=== PATIENT | female | born 1995 | race American Indian/Alaskan Native ===

== ENCOUNTER 2019-07-21 02:39 | Emergency (ER) | payer SELFPAY ==
[2019-07-21 04:26] VITALS: BP 117/71
[2019-07-21] MEDS ORDERED: dexAMETHasone 4 MG/ML VIAL IM ONE (04:35)
--- NOTE | 2019-07-21 04:39 | Emergency Department Report ---
ED ENT HPI - General Chief complaint: Sore Throat Stated complaint: THROAT PAIN/POSS STREP Time Seen by Provider: 07/21/19 04:28 Source: patient Mode of arrival: Ambulatory Limitations: No Limitations - History of Present Illness Initial comments: Patient is a 23-year-old female presents emergency room with complaints of a sore throat that began 2 days ago. She has associated discomfort with swallowing and chills. She denies any fever, nausea, vomiting, diarrhea, shortness of breath. She is able to tolerate p.o. intake and her secretions. She denies any past medical history or allergies to medications. She states her last menstrual cycle was 2 weeks ago. - Related Data Previous Rx's Medication Instructions Recorded Last Taken Type Penicillin Vk [Veetids TAB] 500 mg PO BID 10 Days #20 tablet 07/21/19 Unknown Rx Allergies Allergy/AdvReac Type Severity Reaction Status Date / Time No Known Allergies Allergy Unverified 07/21/19 02:43 ED Dental HPI - General Chief complaint: Sore Throat Stated complaint: THROAT PAIN/POSS STREP Time Seen by Provider: 07/21/19 04:28 Source: patient Mode of arrival: Ambulatory Limitations: No Limitations - Related Data Previous Rx's Medication Instructions Recorded Last Taken Type Penicillin Vk [Veetids TAB] 500 mg PO BID 10 Days #20 tablet 07/21/19 Unknown Rx Allergies Allergy/AdvReac Type Severity Reaction Status Date / Time No Known Allergies Allergy Unverified 07/21/19 02:43 ED Review of Systems ROS: Stated complaint: THROAT PAIN/POSS STREP Other details as noted in HPI Comment: All other systems reviewed and negative ED Past Medical Hx - Past Medical History Previous Medical History?: No - Surgical History Past Surgical History?: Yes Additional Surgical History: Ovarian cyst removal - Social History Smoking Status: Current Every Day Smoker - Medications Home Medications: Home Medications Medication Instructions Recorded Confirmed Last Taken Type Penicillin Vk [Veetids TAB] 500 mg PO BID 10 Days #20 tablet 07/21/19 Unknown Rx ED Physical Exam - General Limitations: No Limitations General appearance: alert, in no apparent distress - Head Head exam: Present: atraumatic, normocephalic - Eye Eye exam: Present: normal appearance - ENT ENT exam: Present: mucous membranes moist - Expanded ENT Exam Expanded Mouth exam: Present: tongue normal. Absent: drooling, trismus, muffled voice, tongue elevation Throat exam: Positive: tonsillar erythema (bilaterally), tonsillomegaly (bilaterally), tonsillar exudate (bilaterally). Negative: R peritonsillar mass, L peritonsillar mass - Respiratory Respiratory exam: Present: normal lung sounds bilaterally. Absent: respiratory distress, wheezes, rales, rhonchi, stridor, chest wall tenderness, accessory muscle use, decreased breath sounds, prolonged expiratory - Cardiovascular Cardiovascular Exam: Present: regular rate, normal rhythm, normal heart sounds. Absent: systolic murmur, diastolic murmur, rubs, gallop - Neurological Exam Neurological exam: Present: alert, oriented X3 - Psychiatric Psychiatric exam: Present: normal affect, normal mood - Skin Skin exam: Present: warm, dry, intact ED Course Vital Signs 07/21/19 07/21/19 02:46 04:25 Temperature 99.2 F 99 F Pulse Rate 94 H 77 Respiratory 18 18 Rate Blood Pressure 138/54 Blood Pressure 117/71 [Right] O2 Sat by Pulse 98 100 Oximetry ED Medical Decision Making - Lab Data Lab Results 07/21/19 Range/Units 03:00 Influenza A (Rapid) Negative (Negative) Influenza B (Rapid) Negative (Negative) Group A Strep Rapid Positive A (Negative) - Medical Decision Making Patient is a 23-year-old female presents emergency room with complaints of a sore throat that began 2 days ago. She has associated discomfort with swallowing and chills. She denies any fever, nausea, vomiting, diarrhea, shortness of breath. She is able to tolerate p.o. intake and her secretions. She denies any past medical history or allergies to medications. She states her last menstrual cycle was 2 weeks ago. Vitals are stable. On exam bilateral tonsillar hypertrophy with exudates, uvula is midline, no uvular deviation, no trismus, no muffled voice, no peritonsillar mass no elevation of the tongue. Rapid strep is positive. Influenza is negative. Patient given dexamethasone injection while in the emergency department. Patient given prescription for penicillin VK. advised pt Please take medication as prescribed. Increase your water intake. May take Tylenol or ibuprofen as needed for pain. Do warm salt water gargles 3 times a day. Please throw away her toothbrush. Do not drink after others or allow others to drink after you. Follow-up with a primary care doctor. Return to the emergency room for any new or worsening symptoms. Critical care attestation.: If time is entered above; I have spent that time in minutes in the direct care of this critically ill patient, excluding procedure time. ED Disposition Clinical Impression: Strep pharyngitis Disposition: DC-01 TO HOME OR SELFCARE Is pt being admited?: No Does the pt Need Aspirin: No Condition: Stable Instructions: Strep Throat (ED) Additional Instructions: Please take medication as prescribed. Increase your water intake. May take Tylenol or ibuprofen as needed for pain. Do warm salt water gargles 3 times a day. Please throw away her toothbrush. Do not drink after others or allow others to drink after you. Follow-up with a primary care doctor. Return to the emergency room for any new or worsening symptoms. Prescriptions: Penicillin Vk [Veetids TAB] 500 mg PO BID 10 Days #20 tablet Referrals: MAGGIE LEUNG MD [Staff Physician] - 3-5 Days [facility] [Outside] - 3-5 Days Time of Disposition: 04:37 Print Language: YAKUT
== END 2019-07-21 04:45 | disposition home or self-care (01) ==
LOC: ED 02:39
DX: J02.0 Streptococcal pharyngitis (principal); F17.200 Nicotine dependence, unspecified, uncomplicated; Z79.899 Other long term (current) drug therapy; Z98.890 Other specified postprocedural states
CPT/HCPCS: 87400; 87430; 96372; 99283; J1100

== ENCOUNTER 2019-09-23 23:54 | Emergency (ER) | payer SELFPAY ==
[2019-09-24 00:49] LABS: Basophils % (Auto) 0.5 % (0.0-1.8); Eosinophils % (Auto) 0.6 % (0.0-4.3); Hematocrit 39.6 % (30.3-42.9); Hemoglobin 12.8 gm/dl (10.1-14.3); Lymphocytes # (Auto) 2.1 K/mm3 (1.2-5.4); Mean Corpuscular HGB Conc 32 % (30-34); Mean Corpuscular Volume 87 fl (79-97); Monocytes # (Auto) 0.4 K/mm3 (0.0-0.8); Monocytes % (Auto) 7.8 % (0.0-7.3); Platelet Count 229 K/mm3 (140-440); Red Blood Count 4.53 M/mm3 (3.65-5.03); Red Cell Distribution Width 15.2 % (13.2-15.2)
[2019-09-24 01:14] LABS: Alanine Aminotransferase 13 units/L (7-56); Albumin 3.8 g/dL (3.9-5); BUN/Creatinine Ratio 11; Blood Urea Nitrogen 8 mg/dL (7-17); Calcium 8.8 mg/dL (8.4-10.2); Hemolysis Index 15
[2019-09-24 01:20] LABS: Bilirubin,Urine NEG (Negative); Blood,Urine SM (Negative); Color,Urine Yellow (Yellow); Mucus,Urine FEW /HPF; Protein,Urine <15 mg/dL mg/dL (Negative); Urobilinogen,Urine < 2.0 mg/dL (<2.0)
[2019-09-24 01:22] LABS: HCG Qualitative,Urine Negative (Negative)
[2019-09-24] MEDS ORDERED: NITROFURANTOIN MONOHYD/M-CRYST 100 MG CAP PO ONE (02:37)
[2019-09-24] MEDS ORDERED: ONDANSETRON 4 MG ODT TAB PO ONE (02:37)
--- NOTE | 2019-09-24 02:43 | Emergency Department Report ---
ED Female HPI - General Chief complaint: Abdominal Pain Stated complaint: VOMITING,FREQ URINATION Time Seen by Provider: 09/24/19 01:20 Source: patient Mode of arrival: Ambulatory Limitations: No Limitations - History of Present Illness Initial comments: pt is a 23 y/o aaf who presents for abd pain and cramping with urination x x 4 days, pt denies fever or chills. abd spasm exacerbated by voiding, she denies vaginal discharge no hematuria. Symptoms are relieved by nothing, symptoms are exacerbated by voiding. . MD Complaint: dysuria Onset/Timin -: days(s) Location: suprapubic Severity: moderate Severity scale (0 -10): 4 Quality: cramping Consistency: intermittent Improves with: none Worsens with: urination Are you Now?: No Last Menstrual Period: 06/04/19 EDC: 03/10/20 Associated Symptoms: nausea/vomiting, dysuria - Related Data Sexually active: No Previous Rx's Medication Instructions Recorded Last Taken Type Penicillin Vk [Veetids TAB] 500 mg PO BID 10 Days #20 tablet 07/21/19 Unknown Rx Acetaminophen [Acetaminophen TAB] 1,000 mg PO Q6HR #30 tablet 09/24/19 Unknown Rx Nitrofurantoin [place]/M-Cryst 100 mg PO BID 7 Days #14 capsule 09/24/19 Unknown Rx [Macrobid CAP] Ondansetron [Zofran Odt] 4 mg PO Q8HR PRN 2 Days #12 09/24/19 Unknown Rx tab.rapdis Allergies Allergy/AdvReac Type Severity Reaction Status Date / Time No Known Allergies Allergy Unverified 07/21/19 02:43 ED Review of Systems ROS: Stated complaint: VOMITING,FREQ URINATION Other details as noted in HPI Constitutional: no symptoms reported Eyes: denies: eye pain, eye discharge, vision change ENT: denies: ear pain, throat pain Respiratory: denies: cough, shortness of breath, wheezing Cardiovascular: denies: chest pain, palpitations Endocrine: no symptoms reported Gastrointestinal: abdominal pain, nausea, vomiting. denies: diarrhea, constipation, hematemesis, melena, hematochezia Genitourinary: urgency, dysuria, frequency. denies: hematuria, discharge, abnormal menses Musculoskeletal: denies: back pain, joint swelling, arthralgia Skin: denies: rash, lesions Neurological: denies: headache, weakness, paresthesias Psychiatric: denies: anxiety, depression Hematological/Lymphatic: denies: easy bleeding, easy bruising ED Past Medical Hx - Past Medical History Previous Medical History?: No - Surgical History Past Surgical History?: Yes Additional Surgical History: Ovarian cyst removal - Social History Smoking Status: Current Every Day Smoker Substance Use Type: None - Medications Home Medications: Home Medications Medication Instructions Recorded Confirmed Last Taken Type Penicillin Vk [Veetids TAB] 500 mg PO BID 10 Days #20 tablet 07/21/19 Unknown Rx Acetaminophen [Acetaminophen TAB] 1,000 mg PO Q6HR #30 tablet 09/24/19 Unknown Rx Nitrofurantoin [place]/M-Cryst 100 mg PO BID 7 Days #14 capsule 09/24/19 Unknown Rx [Macrobid CAP] Ondansetron [Zofran Odt] 4 mg PO Q8HR PRN 2 Days #12 09/24/19 Unknown Rx tab.rapdis ED Physical Exam - General Limitations: No Limitations General appearance: alert, in no apparent distress - Head Head exam: Present: atraumatic, normocephalic - Eye Eye exam: Present: normal appearance, PERRL, EOMI Pupils: Present: normal accommodation - ENT ENT exam: Present: mucous membranes moist - Respiratory Respiratory exam: Present: normal lung sounds bilaterally. Absent: respiratory distress, wheezes, stridor, chest wall tenderness - Cardiovascular Cardiovascular Exam: Present: regular rate, normal rhythm, normal heart sounds. Absent: systolic murmur, diastolic murmur, rubs, gallop - GI/Abdominal GI/Abdominal exam: Present: soft, normal bowel sounds. Absent: distended, tenderness, guarding, rebound, rigid, bruit, hernia - Rectal Rectal exam: Present: deferred - Extremities Exam Extremities exam: Present: normal inspection, full ROM. Absent: tenderness - Back Exam Back exam: Present: normal inspection, full ROM. Absent: tenderness, CVA tenderness (R), CVA tenderness (L), rash noted - Neurological Exam Neurological exam: Present: alert, oriented X3, CN II-XII intact, normal gait - Psychiatric Psychiatric exam: Present: normal affect, normal mood - Skin Skin exam: Present: warm, dry, intact, normal color. Absent: rash ED Course Vital Signs 09/23/19 23:57 Temperature 98.4 F Pulse Rate 84 Respiratory 20 Rate Blood Pressure 134/76 O2 Sat by Pulse 99 Oximetry ED Medical Decision Making - Lab Data Result diagrams: 09/24/19 00:32 09/24/19 00:32 Labs 09/24/19 09/24/19 09/24/19 00:32 00:32 00:46 WBC 5.1 RBC 4.53 Hgb 12.8 Hct 39.6 MCV 87 MCH 28 MCHC 32 RDW 15.2 Plt Count 229 Lymph % (Auto) 41.0 H [place] % (Auto) 7.8 H Eos % (Auto) 0.6 Baso % (Auto) 0.5 Lymph # 2.1 [place] # 0.4 Eos # 0.0 Baso # 0.0 Seg Neutrophils % 50.1 Seg Neutrophils # 2.6 Sodium 143 Potassium 4.0 Chloride 104.3 Carbon Dioxide 25 Anion Gap 18 BUN 8 Creatinine 0.7 Estimated GFR > 60 BUN/Creatinine Ratio 11 Glucose 96 Calcium 8.8 Total Bilirubin 0.20 AST 15 ALT 13 Alkaline Phosphatase 73 Total Protein 7.1 Albumin 3.8 L Albumin/Globulin Ratio 1.2 Urine Color Yellow Urine Turbidity Cloudy Urine pH 6.0 Ur Specific [place] 1.018 Urine Protein <15 mg/dl Urine Glucose (UA) Neg Urine Ketones Neg Urine Blood Sm Urine Nitrite Neg Urine Bilirubin Neg Urine Urobilinogen < 2.0 Ur Leukocyte Esterase Sm Urine WBC (Auto) 17.0 H Urine RBC (Auto) 4.0 U Epithel Cells (Auto) 55.0 H Urine Mucus Few Urine HCG, Qual Negative - Medical Decision Making this is a uti , plan [facility] [place], follow up with pcp , pt verbalized agreement and understand of discharge plan Critical care attestation.: If time is entered above; I have spent that time in minutes in the direct care of this critically ill patient, excluding procedure time. ED Disposition Clinical Impression: UTI (urinary tract infection) Qualifiers: Urinary tract infection type: acute cystitis Hematuria presence: without hematuria Qualified Code(s): N30.00 - Acute cystitis without hematuria Disposition: TO HOME OR SELFCARE Is pt being admited?: No Does the pt Need Aspirin: No Condition: Stable Instructions: Abdominal Pain (ED) Prescriptions: Acetaminophen [Acetaminophen TAB] 1,000 mg PO Q6HR #30 tablet Nitrofurantoin [place]/M-Cryst [Macrobid CAP] 100 mg PO BID 7 Days #14 capsule Ondansetron [Zofran Odt] 4 mg PO Q8HR PRN 2 Days #12 tab.rapdis PRN Reason: Nausea And Vomiting Referrals: RAMIN SHAHID MD [Staff Physician] - 3-5 Days Forms: Work/School Release Form(ED) Time of Disposition: 02:52
[2019-09-24 02:59] VITALS: BP 130/72
== END 2019-09-24 02:57 | disposition home or self-care (01) ==
LOC: ED 23:54
DX: N39.0 Urinary tract infection, site not specified (principal); F17.200 Nicotine dependence, unspecified, uncomplicated; Z79.899 Other long term (current) drug therapy; Z98.890 Other specified postprocedural states
CPT/HCPCS: 36415; 80053; 81001; 81025; 85025; 87086; 99283; Q0162